=== PATIENT | male | born 1990 | race Caucasian/White ===

== ENCOUNTER 2024-05-14 20:49 | Emergency (ER) | payer BC, SELFPAY ==
--- NOTE | 2024-05-14 21:50 | RAD REPORT ---
EXAM: Hand Right 3 View HISTORY: PAIN COMPARISON: None FINDINGS: Bones: Rectum and at the base of the fifth metacarpal suspicious for an acute fracture with intra-art icular extension. Mild deformity at the distal metaphysis of the fifth metacarpal likely from a remote fracture. Alignment:No significant malalignment. Degenerative changes:None significant. Other: Soft tissue swelling is present along the ulnar aspect of the hand. IMPRESSION: Mildly displaced fracture at the base of the fifth metacarpal with intra-articular extension.
--- NOTE | 2024-05-14 22:13 | EDPHYS ---
Physician Documentation [facility] Name: Saul Valencia Age: 33 yrs Sex: Male : 1990 Arrival Date: 05/14/2024 Time: 20:49 Bed 12 Private MD: ED Physician Tj Newberry HPI: 05/14 23:14 This 33 yrs old Male presents to ER via Ambulatory with complaints of Hand Injury. kb 23:14 Pt is a 33 year old male who presents for pain, swelling and bruising to right hand kb after a piece of metal fell onto it this morning. Denies any other injuries. Full ROM. Historical: - Allergies: 21:15 No Known Allergies; tm6 - PMHx: 21:15 None; tm6 - PSHx: 21:15 None; tm6 - Immunization history:: Flu vaccine is not up to date. - Infectious Disease History:: Denies. - Social history:: Smoking status: Patient denies any tobacco usage or history of. ROS: 23:12 Constitutional: As per HPI kb Exam: 23:12 Constitutional: This is a well developed, well nourished patient who is awake, alert, kb and in no acute distress. Head/Face: Normocephalic, atraumatic. ENT: Moist Mucous membranes Cardiovascular: Regular rate Respiratory: Respirations even and unlabored. No increased work of breathing. Talking in full sentences Skin: Warm, dry with normal turgor. Normal color. Neuro: Awake and alert, GCS 15, oriented to person, place, time, and situation. 23:12 Musculoskeletal/extremity: Extremities: grossly normal except: noted in the dorsum of right hand: contusion, ecchymosis, pain, swelling, tenderness, ROM: intact in all extremities, Circulation is intact in all extremities. Sensation intact. Vital Signs: 21:14 BP 148 / 95; MAP 111 mmHg; tm6 21:14 Pulse 79; Resp 17; Temp 98.1(O); Pulse Ox 100% on R/A; Weight 88.45 kg; Height 6 ft. 0 tm6 in. ; Pain 5/10; 23:09 BP 134 / 95; Pulse 71; Resp 16; Temp 98.2(O); Pulse Ox 100% on R/A; Pain 0/10; le1 21:14 Body Mass Index 26.45 (88.45 kg, 182.88 cm) tm6 21:14 Pain Scale: Adult tm6 23:09 Pain Scale: Adult le1 MDM: 20:57 Medical Screening Exam initiated kb 23:14 Differential diagnosis: dislocation, closed fracture, contusion. Data reviewed: vital kb signs, nurses notes. Counseling: I had a detailed discussion with the patient and/or guardian regarding the historical points, exam findings, and any diagnostic results supporting the discharge/admit diagnosis, radiology results, the need for outpatient follow up, a orthopedic surgeon, to return to the emergency department if symptoms worsen or persist or if there are any questions or concerns that arise at home. 05/14 21:21 Order name: Hand Right 3 View XRAY; Complete Time: 22:01 kb 05/14 22:01 Order name: Ulnar Gutter splint; Complete Time: 22:57 kb Administered Medications: No medications were administered Disposition Summary: 05/14/24 22:13 Discharge Ordered Notes: Location: Home kb Condition: Stable kb Diagnosis - Mildly displaced fracture base of fifth metacarpal, right hand kb Followup: kb - With: Emergency Department - When: As needed - Reason: Worsening of condition Followup: kb - With: Private Physician - When: 2 - 3 days - Reason: Recheck today's complaints, Continuance of care, Re-evaluation by your physician Discharge Instructions: - Discharge Summary Sheet kb - Metacarpal Fracture, [id number] kb Forms: - Medication Reconciliation Form kb - Antibiotic Education kb - Prescription Opioid Use kb - Patient Portal Instructions kb - Leadership Thank You Letter kb - Work release form le1 Addendum: 05/17/2024 16:20 I was immediately available for consultation during this patient's visit. I did not e c2 personally see the patient or discuss the patient with the KENNETH. . Signatures: Dispatcher [employer] Ilana Agrawal, URBAN-Damaris SANDOVALP-Tj Griffin MD MD ec2 Andreina Velasquez RN RN tm6
--- NOTE | 2024-05-14 22:13 | ER ---
Nurse's Notes [facility] Name: Saul Valencia Age: 33 yrs Sex: Male : 1990 Arrival Date: 05/14/2024 Time: 20:49 Bed 12 Private MD: Diagnosis: Mildly displaced fracture base of fifth metacarpal, right hand Presentation: 05/14 21:15 Chief complaint: Patient states: early this morning a piece of metal fell down on my tm6 right wrist. Has been swollen and in pain ever since. Coronavirus screen: Client denies travel out of the [place] in the last 14 days. Ebola Screen: Patient negative for fever greater than or equal to 101.5 degrees Fahrenheit, and additional compatible Ebola Virus Disease symptoms Patient denies exposure to infectious person. Patient denies travel to an Ebola-affected area in the 21 days before illness onset. No symptoms or risks identified at this time. Initial Sepsis Screen: Does the patient meet any 2 criteria? No. Patient's initial sepsis screen is negative. Does the patient have a suspected source of infection? No. Patient's initial sepsis screen is negative. Risk Assessment: Do you want to hurt yourself or someone else? Patient reports no desire to harm self or others. Onset of symptoms was May 14, 2024. 21:15 Method Of Arrival: Ambulatory tm6 21:15 Acuity: LARISA 4 tm6 Triage Assessment: 21:15 General: Appears in no apparent distress. Behavior is calm, cooperative. Pain: tm6 Complains of pain in right hand Pain currently is 5 out of 10 on a pain scale. EENT: No signs and/or symptoms were reported regarding the EENT system. Neuro: Level of Consciousness is awake, alert, obeys commands, Oriented to person, place, time, situation. Cardiovascular: Patient's skin is warm and dry. Respiratory: Airway is patent Respiratory effort is even, unlabored, Respiratory pattern is regular, symmetrical. GI: No signs and/or symptoms were reported involving the gastrointestinal system. Abdomen is flat, non-distended. : No signs and/or symptoms were reported regarding the genitourinary system. Derm: No signs and/or symptoms reported regarding the dermatologic system. Musculoskeletal: Swelling present in right hand Reports pain in right hand Pain is 5 out of 10 on a pain scale. Historical: - Allergies: 21:15 No Known Allergies; tm6 - PMHx: 21:15 None; tm6 - PSHx: 21:15 None; tm6 - Immunization history:: Flu vaccine is not up to date. - Infectious Disease History:: Denies. - Social history:: Smoking status: Patient denies any tobacco usage or history of. Screenin:25 [facility] ED Fall Risk Assessment (Adult) History of falling in the last 3 months, le1 including since admission No falls in past 3 months (0 pts) Confusion or Disorientation No (0 pts) Intoxicated or Sedated No (0 pts) Impaired Gait No (0 pts) Mobility Assist Device Used No (0 pt) Altered Elimination No (0 pt) Score/Fall Risk Level 0 - 2 = Low Risk Oriented to surroundings, Maintained a safe environment, Educated pt \T\ family on fall prevention, incl call for assistance when getting out of bed, Assessed \T\ reinforced patient's understanding of fall precautions, Hourly rounding (assess needs \T\ fall precautionary measures) done, Used ambulatory aids as needed (educated on \T\ assisted with). Abuse screen: Denies threats or abuse. Denies injuries from another. Nutritional screening: No deficits noted. Tuberculosis screening: No symptoms or risk factors identified. Assessment: 21:23 General: Appears in no apparent distress. comfortable, Behavior is calm, cooperative. le1 Pain: Denies pain. Neuro: No deficits noted. Cardiovascular: No deficits noted. Respiratory: No deficits noted. GI: No deficits noted. : No deficits noted. Musculoskeletal: No deficits noted. Injury Description: Bruise sustained to right hand was sustained 12-24 hours ago. Vital Signs: 21:14 BP 148 / 95; MAP 111 mmHg; tm6 21:14 Pulse 79; Resp 17; Temp 98.1(O); Pulse Ox 100% on R/A; Weight 88.45 kg; Height 6 ft. 0 tm6 in. ; Pain 5/10; 23:09 BP 134 / 95; Pulse 71; Resp 16; Temp 98.2(O); Pulse Ox 100% on R/A; Pain 0/10; le1 21:14 Body Mass Index 26.45 (88.45 kg, 182.88 cm) tm6 21:14 Pain Scale: Adult tm6 23:09 Pain Scale: Adult le1 ED Course: 20:52 Patient arrived in ED. jj6 20:56 Ilana Tamez FNP-C [facility]. kb 20:56 Tj Newberry MD is Attending Physician. kb 21:15 Arm band placed on left wrist. tm6 21:16 Triage completed. tm6 21:21 Vijaya Ozuna, RN is Primary Nurse. le1 21:25 Patient has correct armband on for positive identification. Bed in low position. Call le1 light in reach. Side rails up X 1. Provided Education on: Patient informed to use call light if needed. 21:39 Hand Right 3 View XRAY In Process Unspecified. EDMS 23:08 No provider procedures requiring assistance completed. Patient did not have IV access le1 during this emergency room visit. Orthoglass splint: Ulnar gutter/Boxer splint applied on right forearm. Administered Medications: No medications were administered Medication: 23:09 VIS not applicable for this client. le1 Outcome: 22:13 Discharge ordered by MD. kb 23:09 Discharged to home ambulatory, le1 23:09 Condition: improved 23:09 Discharge instructions given to patient, Instructed on discharge instructions, follow up and referral plans. Demonstrated understanding of instructions, follow-up care, 23:10 Patient left the ED. le1 Signatures: Dispatcher [employer] EDNE Ilana Tamez FNP-C FNP-Roopa Torres jj6 Andreina Velasquez RN RN tm6 Vijaya Ozuna, RN RN le1
[2024-05-15 02:09] VITALS: O2SAT 100
[2024-05-15 02:10] VITALS: BP 134/95; TEMP 98.2
== END 2024-05-14 23:10 | disposition home or self-care (01) ==
LOC: ER 20:49
PROC: 2W3EX1Z Immobilization of Right Hand using Splint (ICD-10-PCS; principal; 2024-05-14)
DX: S62.316A Displaced fracture of base of fifth metacarpal bone, right hand, initial encounter for closed fracture (principal)
CPT/HCPCS: 99283